=== PATIENT | male | born 1935 | race Caucasian/White ===

== ENCOUNTER → 2016-09-11 | Outpatient (CLI) | payer MEDICARE ==
--- NOTE | 2016-09-11 16:43 | CT ---
EXAMINATION TYPE: CT chest wo con DATE OF EXAM: 09/11/2016 COMPARISON: 03/28/2016 HISTORY: Solitary nodule of lung. CT DLP: 340.50 mGycm, Automated exposure control for dose reduction was used. CONTRAST: None TECHNIQUE: Axial images were obtained at 5 mm thick sections. Reconstructed images are reviewed on [email or web address] computer in the coronal plane. FINDINGS: There is a 7 mm density within the right middle lobe. Series 4 image 35. Some pulmonary fibrosis may be in the dependent lung bases. Paraseptal emphysematous changes could be considered. Some mild bronc hiectasis appears to be in the lower lung carranza. Emphysematous changes are present diffusely. No enlarged mediastinal or hilar adenopathy is evident. The ascending aorta diameter at the level o f the main pulmonary artery is 3.9 cm. The main pulmonary artery diameter at the bifurcation is 3.0 cm. Minimal coronary artery calcification is present. Limited CT sections are obtained through the upper abdomen. Pancreas atrophy is present. IMPRESSIONS: 1. Emphysematous changes. 2. Tiny density may be in the right middle lobe. This 7 mm density is 2 mm larger than the comparison study. Consider PET CT for additional evaluation.
== END | disposition home or self-care (01) ==
LOC: RADCTMAIN 16:23
PROVIDERS: ATTEND Family Medicine
DX: J43.9 Emphysema, unspecified (principal)
CPT/HCPCS: 71250

== ENCOUNTER → 2017-04-17 | Outpatient (CLI) | payer MEDICARE ==
--- NOTE | 2017-04-17 10:33 | MR ---
EXAMINATION TYPE: MR brain wo con DATE OF EXAM: 04/17/2017 COMPARISON: Correlation CT 03/28/2017 HISTORY: 81-year-old male TIA unspecified, weakness TECHNIQUE: Multiplanar, multisequence images of the brain and brainstem were acquired without IV con trast. Diffusion weighted imaging is performed. FINDINGS: No evidence for acute infarction, hemorrhage, mass, mass effect, midline shift, herniation, effacemen t of basal cisterns, or extra-axial fluid collection. Some bright signal in the left ivey radiata on DWI sequence is compatible with T2 shine through as there is corresponding bright signal on the ADC map. No restricted diffusion identified. There is mild to moderate generalized supratentorial volume loss. No hydrocephalus. Major intracranial flow voids are intact. The right vertebral artery is dominant. T2/FLAIR weighted sequences show mild scattered burden of bright white matter change, numbering appro ximately 9 in the left cerebral hemisphere and 10 in the right cerebral hemisphere. Largest area lorenzo ures 1.2 cm in the left ivey radiata extending to the overlying anterior parietal cortex. Midline structures demonstrate normal morphology. The craniocervical junction is normal. Mild pansinus mucosal thickening with a prominent 2.6 cm polyp or mucosal retention cyst floor of the left maxillary sinus. IMPRESSION: 1. 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 No a cute intracranial abnormality seen. 2. Mild to moderate atrophy. Background of mild scattered burden of T2 bright white matter change lik gera related to chronic small vessel ischemic disease. 3. Mild chronic pansinus disease.
== END | disposition home or self-care (01) ==
LOC: RADMRIMAIN 08:05
PROVIDERS: ATTEND Family Medicine
DX: G31.9 Degenerative disease of nervous system, unspecified (principal); Z86.73 Personal history of transient ischemic attack (TIA), and cerebral infarction without residual deficits
CPT/HCPCS: 70551

== ENCOUNTER → 2017-04-19 | Outpatient (CLI) | payer MEDICARE ==
--- NOTE | 2017-04-19 16:01 | US ---
EXAMINATION TYPE: US kidneys/renal and bladder DATE OF EXAM: 04/19/2017 COMPARISON: NONE CLINICAL HISTORY: 81-year-old male R31.9 HEMATURIA. TECHNIQUE: Multiple sonographic images of the kidneys and bladder are obtained. FINDINGS: Right Kidney: 10.1 x 4.8 x 4.5 cm a slightly lobulated contour, similar to prior. No hydronephrosis. Left Kidney: 10.1 x 4.8 x 3.7 cm with contour lobulations, no definite mass. Overall similar appearan ce to 03/28/2016. No hydronephrosis. Partial distention limits evaluation. Neither ureteral jet is seen during the course of the exam. Pos t Void Residual Volume: 20.5 mL IMPRESSION: 1. Similar lobulated renal contours. No hydronephrosis on either side and no convincing mass by ultra sound. 2. Postvoid bladder volume of 20.5 ml. While this is increased, it is within an acceptable range.
== END | disposition home or self-care (01) ==
LOC: RADUSWWP 14:40
PROVIDERS: ATTEND Family Medicine
DX: R31.9 Hematuria, unspecified (principal)
CPT/HCPCS: 76770

== ENCOUNTER → 2017-05-09 | Outpatient (CLI) | payer MEDICARE ==
--- NOTE | 2017-05-09 14:36 | US ---
EXAMINATION TYPE: US venous doppler duplex LE RT DATE OF EXAM: 05/09/2017 2:23 PM COMPARISON: NONE CLINICAL HISTORY: M79.604 Pain in Rt leg. right muscle pain per patient, no h/o dvt, no swelling SIDE PERFORMED: Right TECHNIQUE: The lower extremity deep venous system is examined utilizing real time linear array sonog richi with graded compression, doppler sonography and color-flow sonography. VESSELS IMAGED: External Iliac Vein (EIV) Common Femoral Vein Deep Femoral Vein Greater Saphenous Vein * Femoral Vein Popliteal Vein Small Saphenous Vein * Proximal Calf Veins (* superficial vessels) Grayscale, color doppler, spectral doppler imaging performed of the deep veins of the lower extremiti es. There is normal flow, compressibility, vascular waveforms. Right Leg: Appears negative for DVT *tech impression to Aishwarya at office IMPRESSION: No sonographic evidence of deep venous arthrosis within the right lower extremity.
== END | disposition home or self-care (01) ==
LOC: RADUSWWP 13:49
PROVIDERS: ATTEND Family Medicine
DX: M79.604 Pain in right leg (principal)

== ENCOUNTER 2017-08-02 10:20 | Day surgery (SDC) | payer MEDICARE ==
[2017-08-01 09:32] VITALS: BMI 25.0
[~2017-08-02 10:20] MED LIST: LACTATED RINGERS 1,000 ML IV SCH
[2017-08-02 11:59] VITALS: TEMP 97.8
[2017-08-02 12:02] VITALS: RESP 16
[2017-08-02] MEDS ORDERED: LIDOCAINE 1% 20 ML VIAL (10MG/ML) FOR IV START INTRADERMA ONE (12:04)
[2017-08-02] MEDS ORDERED: LIDOCAINE 1% INJ 10MG/ML (20 ML MDV) ONE (12:15)
[2017-08-02] MEDS ORDERED: PROPOFOL 10 MG/ML 20 ML VIAL IV ONE (12:15)
--- NOTE | 2017-08-02 13:01 | P.PCN ---
Date of Procedure: 08/02/17 Procedure(s) Performed: Procedure: Esophagogastroduodenoscopy and biopsy. Preoperative diagnosis: Chronic reflux symptoms despite therapy. Postoperative diagnosis: 1. Small sliding hiatal hernia with no definite esophagitis or complicated reflux disease. 2. Mild antral gastritis. 3. Multiple biopsies obtained from the duodenum, antrum and esophagus. Preparation and sedation: Was provided by anesthesia. Brief clinical history: The patient is an 81-year-old male who is scheduled for this evaluation because of chronic reflux symptoms that is requiring therapy. He denies dysphagia or other alarm symptoms. No history of anemia. This evaluation is to assess for esophagitis or complicated reflux disease. Procedure: With the patient on his left lateral decubitus position and after informed consent and adequate sedation, I passed the Olympus-GIF 160 video upper endoscope through the cricopharyngeus down the esophagus. GE junction was around 41 centimeters from the incisors and there was a small sliding hiatal hernia but no obvious esophagitis or complicated reflux disease. The endoscope was then passed into the stomach which was insufflated with air and inspected in detail including the retroflex view in the cardia. There was some mottling and erythema in the antrum but no ulcers or erosions. Pyloric channel , duodenal bulb, post bulbar area and descending duodenum appeared within normal limits. I obtained multiple biopsies from the duodenum, antrum and esophagus then the endoscope was withdrawn. The patient tolerated the procedure well. Plan: The patient was reassured. Will await biopsy results. He will continue antireflux diet and measures. Further plans based on his course and biopsy results.
[2017-08-02 13:19] VITALS: BP 188/79; PULSE 62
== END 2017-08-02 13:51 | disposition home or self-care (01) ==
LOC: ORWHC2ENDO 10:20
DX: K29.50 Unspecified chronic gastritis without bleeding (principal); K21.9 Gastro-esophageal reflux disease without esophagitis; I10 Essential (primary) hypertension; E78.5 Hyperlipidemia, unspecified; N40.0 Benign prostatic hyperplasia without lower urinary tract symptoms; K44.9 Diaphragmatic hernia without obstruction or gangrene; Z86.73 Personal history of transient ischemic attack (TIA), and cerebral infarction without residual deficits; E07.9 Disorder of thyroid, unspecified; Z79.899 Other long term (current) drug therapy
CPT/HCPCS: 88305; 43239; J2001; J2704

== ENCOUNTER → 2021-06-21 | Outpatient (CLI) | payer MEDICARE ==
--- NOTE | 2021-06-21 08:42 | MR ---
EXAMINATION TYPE: MR brain wo/w con DATE OF EXAM: 06/21/2021 COMPARISON: Prior MRI brain April 17, 2017 HISTORY: Transient cerebral ischemia TECHNIQUE: Multiplanar, multisequence images of the brain and brainstem is performed without and with IV contras t, utilizing 8 mL intravenous Gadavist . FINDINGS: Diffusion weighted images demonstrate no evidence of a recent infarct or other diffusion ab normality. There is mild to moderate ventricular and sulcal prominence redemonstrated. Scattered foc i of T2 hyperintensity seen throughout the white matter bilaterally greatest in the periventricular l evels. Focal area of old infarct or encephalomalacia inferior anterior left parietal level. This was subacute in age on prior MRI and shows some interval change or progression. Midline structures demonstrate normal morphology. The craniocervical junction appears within normal limits. Post contrast images demonstrate no abnormal enhancement. The dural venous sinuses appear pa tent. Mild mucosal thickening throughout the ethmoid and inferior maxillary sinuses redemonstrated. N nohemi septum redemonstrated deviated to right of midline anteriorly. Globes are intact bilaterally. IMPRESSION: 1. No MRI for a recent infarct. 2. Onjh-we-imtcwjik diffuse cerebral atrophy and chronic small vessel ischemic changes with old anter ior inferior left parietal lobe infarct are all redemonstrated. 3. Mild chronic paranasal sinus disease redemonstrated.
== END | disposition home or self-care (01) ==
LOC: RADMRIMAIN 07:35
PROVIDERS: ATTEND Family Medicine
DX: G45.9 Transient cerebral ischemic attack, unspecified (principal)
CPT/HCPCS: 70553; A9585

== ENCOUNTER → 2021-06-22 | Outpatient (CLI) | payer MEDICARE ==
--- NOTE | 2021-06-22 15:40 | US ---
EXAMINATION TYPE: US carotid duplex BILAT DATE OF EXAM: 06/22/2021 COMPARISON: NONE CLINICAL HISTORY: G45.9 TRANSIENT CEREBRAL ISCHEMIC ATTACK, UNSPECIFED. TIA, HTN, hyperlipidemia, ean or smoker. EXAM MEASUREMENTS: RIGHT: Peak Systolic Velocity (PSV) cm/sec ----- Right CCA: 93.2 ----- Right ICA: 79.6 ----- Right ECA: 82.9 ICA/CCA ratio: 0.85 RIGHT: End Diastole cm/sec ----- Right CCA: 9.94 ----- Right ICA: 13.7 ----- Right ECA: 0.55 LEFT: Peak Systolic Velocity (PSV) cm/sec ----- Left CCA: 74.6 ----- Left ICA: 89.5 ----- Left ECA: 102 ICA/CCA ratio: 1.20 LEFT: End Diastole cm/sec ----- Left CCA: 11.5 ----- Left ICA: 14.8 ----- Left ECA: 2.49 VERTEBRALS (direction of flow): Right Vertebral: Antegrade Left Vertebral: Antegrade Rhythm: Normal Intimal thickening seen bilaterally. Plaque seen within right and left ICA. No elevated velocities a t this time. IMPRESSION: 1. Intimal thickening with mild atheromatous plaquing. Significant flow-limiting stenosis is not evid ent. Criteria for Assigning % of Stenosis / Diameter reduction (Estimation based on the indirect measurements of the internal carotid artery velocities (ICA PSV). 1. Normal (no stenosis)=ICA PSV < 125 cm/s: ratio < 2.0: ICA EDV<40 cm/s. 2. Less than 50% stenosis=ICA PSV < 125 cm/s: ratio < 2.0: ICA EDV<40 cm/s. 3. 50 to 69% stenosis=ICA PSV of 125 to 230 cm/s: ration 2.0 ? 4.0: ICA EDV 40-100 cm/s. 4. Greater than 70% stenosis to near occlusion= ICA PSV > 230 cm/s: ratio > 4.0: ICA EDV > 100 cm/s. 5. Near occlusion= ICA PSV velocities may be low or undetectable: variable ratio and ICA EDV. 6. Total occlusion=unable to detect flow.
== END | disposition home or self-care (01) ==
LOC: RADUSWWP 14:47
PROVIDERS: ATTEND Family Medicine
DX: I67.2 Cerebral atherosclerosis (principal)
CPT/HCPCS: 93880

== ENCOUNTER 2021-07-04 10:34 | Emergency (ER) | payer MEDICARE ==
[2021-07-04 10:41] VITALS: RESP 18; TEMP 97.6
--- NOTE | 2021-07-04 11:25 | ED ---
General Adult HPI - General Chief complaint: Dizziness Stated complaint: Dizzy/High BP Time Seen by Provider: 07/04/21 10:49 Source: patient Mode of arrival: wheelchair Limitations: no limitations - History of Present Illness Initial comments: This 85-year-old male with past medical history of TIA, hyperlipidemia, hypertension and thyroid disorder presents emergency Department feeling lightheaded 2 hours. Patient states he was sitting in his chair earlier today and after going from sitting to standing he began to feel "wobbly and lightheaded." He states he did try and get up and walk around a little bit which he states it worsen his lightheadedness. Patient states he then sat down on the couch and did still feel some lightheadedness for about 30 minutes which should resolve on its own prior to coming to the emergency department. Patient states he thought he felt dizzy, however he denies himself or the room spinning states he thinks it was more lightheadedness than anything. Patient denies ever having symptoms similar to this in the past. Patient states he is currently not experiencing lightheadedness at this time and states he feels symptom-free. Patient states at the time of feeling lightheaded at home he did take his blood pressure which was 182/90. She states she does take high blood pressure medication and did take his losartan this morning. Patient denies any chest pain, shortness of breath, abdominal pain, nausea, vomiting, change in bowel or bladder, change in appetite, headache, visual changes, one-sided weakness. - Related Data Home Medications Medication Instructions Recorded Confirmed Levothyroxine Sodium [Synthroid] 50 mcg PO HS 08/04/15 07/04/21 Losartan [Cozaar] 50 mg PO DAILY 08/04/15 07/04/21 Aspirin 325 mg PO HS 07/04/21 07/04/21 Atorvastatin [Lipitor] 40 mg PO HS 07/04/21 07/04/21 Omeprazole 20 mg PO DAILY 07/04/21 07/04/21 rOPINIRole HCL [Requip] 2 mg PO HS 07/04/21 07/04/21 Allergies Allergy/AdvReac Type Severity Reaction Status Date / Time No Known Allergies Allergy Verified 07/04/21 11:15 Review of Systems ROS Statement: Those systems with pertinent positive or pertinent negative responses have been documented in the HPI. ROS Other: All systems not noted in ROS Statement are negative. Past Medical History Past Medical History: CVA/TIA, GERD/Reflux, Hyperlipidemia, Hypertension, Prostate Disorder, Thyroid Disorder Additional Past Medical History / Comment(s): enlarged prostate, TIA 2016- tingling right hand, severe episode of GERD recently History of Any Multi-Drug Resistant Organisms: None Reported Additional Past Surgical History / Comment(s): COLONOSCOPY Past Anesthesia/Blood Transfusion Reactions: No Reported Reaction Past Psychological History: No Psychological Hx Reported Smoking Status: Former smoker Past Alcohol Use History: Daily Past Drug Use History: None Reported - Past Family History Mother Family Medical History: No Reported History General Exam Limitations: no limitations General appearance: alert, in no apparent distress Head exam: Present: atraumatic, normocephalic, normal inspection Eye exam: Present: normal appearance, PERRL, EOMI. Absent: scleral icterus, conjunctival injection, periorbital swelling Pupils: Present: normal accommodation ENT exam: Present: mucous membranes moist Neck exam: Present: normal inspection, full ROM. Absent: tenderness, meningismus, lymphadenopathy Respiratory exam: Present: normal lung sounds bilaterally. Absent: respiratory distress, wheezes, rales, rhonchi, stridor, chest wall tenderness Cardiovascular Exam: Present: regular rate, normal rhythm, normal heart sounds. Absent: systolic murmur, diastolic murmur, rubs, gallop, clicks GI/Abdominal exam: Present: soft, normal bowel sounds. Absent: distended, tenderness, guarding, rebound, rigid Extremities exam: Present: normal inspection, full ROM, normal capillary refill. Absent: tenderness, pedal edema, joint swelling, calf tenderness Back exam: Present: normal inspection, full ROM. Absent: CVA tenderness (R), CVA tenderness (L), paraspinal tenderness, vertebral tenderness Neurological exam: Present: alert, oriented X3, CN II-XII intact, other (Patient able to perform finger to nose, 6 cardinal signs of gaze, and rapid alternating movements without any trouble.). Absent: motor sensory deficit Psychiatric exam: Present: normal affect, normal mood Skin exam: Present: warm, dry, intact, normal color. Absent: rash Course Vital Signs 07/04/21 07/04/21 07/04/21 10:35 12:29 13:15 Temperature 97.6 F Pulse Rate 83 85 Respiratory 18 18 Rate Blood Pressure 226/87 175/75 Blood Pressure 188/89 [Sitting] Blood Pressure 181/85 [Standing] Blood Pressure 190/77 [Supine] O2 Sat by Pulse 94 L 98 Oximetry EKG Findings - EKG Comments: EKG Findings:: ED impression: Sinus rhythm. Ventricular rate 76 beats minute. IA interval 206. QRS duration 101. QT/QTC 369/399. Similar compared to prior EKGs. Reviewed by myself and my attending, Dr. Villagran Medical Decision Making - Medical Decision Making This 85-year-old male presents emergency Department with episodic lightheadedness that began this morning. Patient currently without any symptoms. Patient did get up and walk to the bathroom and stated he did not feel any symptoms at that time. Patient with labs of white blood cell count 5.8, BUN 22, creatinine 1. 27, urine with trace protein. Troponin negative. Chest x-ray impression: COPD. Patchy peripheral changes appear to be mostly chronic. Query any underlying fibrosis or interstitial pneumonitis. Patient without any cough, fever, or shortness of breath. CT brain without contrast impression: No acute intracranial hemorrhage or midline shift. There is mild to moderate diffuse her last her feet and chronic small vessel ischemic changes and was treated. No significant change from 2017. Patient given fluids in the emergency department and was requesting to be discharged. Patient stated he follow-up with his primary care provider and yarn spinner this week. Patient as ymptomatic prior to discharge. I did instruct patient to return if any symptoms return or for any new, concerning, or worsening symptoms arise. Strict return precautions were discussed. Patient verbally agreed to plan. Patient sent home in stable condition. Case discussed in detail to my attending, Dr. Villagran. - Lab Data Result diagrams: 07/04/21 11:16 07/04/21 11:16 Lab Results 07/04/21 07/04/21 07/04/21 Range/Units 11:16 11:16 11:16 WBC 5.8 (3.8-10.6) k/uL RBC 4.32 (4.30-5.90) m/uL Hgb 14.3 (13.0-17.5) gm/dL Hct 42.9 (39.0-53.0) % MCV 99.3 (80.0-100.0) fL MCH 33.0 (25.0-35.0) pg MCHC 33.3 (31.0-37.0) g/dL RDW 13.3 (11.5-15.5) % Plt Count 134 L (150-450) k/uL MPV 7.5 Neutrophils % 68 % Lymphocytes % 23 % Monocytes % 5 % Eosinophils % 2 % Basophils % 1 % Neutrophils # 3.9 (1.3-7.7) k/uL Lymphocytes # 1.3 (1.0-4.8) k/uL Monocytes # 0.3 (0-1.0) k/uL Eosinophils # 0.1 (0-0.7) k/uL Basophils # 0.1 (0-0.2) k/uL PT 10.4 (9.0-12.0) sec INR 0.9 (<1.2) Sodium 141 (137-145) mmol/L Potassium 4.1 (3.5-5.1) mmol/L Chloride 109 H (98-107) mmol/L Carbon Dioxide 24 (22-30) mmol/L Anion Gap 8 mmol/L BUN 22 H (9-20) mg/dL Creatinine 1.27 H (0.66-1.25) mg/dL Est GFR (CKD-EPI)AfAm 59 (>60 ml/min/1.73 sqM) Est GFR (CKD-EPI)NonAf 51 (>60 ml/min/1.73 sqM) Glucose 139 H (74-99) mg/dL Calcium 9.4 (8.4-10.2) mg/dL Magnesium 1.9 (1.6-2.3) mg/dL Total Bilirubin 1.3 (0.2-1.3) mg/dL AST 25 (17-59) U/L ALT 21 (4-49) U/L Alkaline Phosphatase 117 (38-126) U/L Troponin I (0.000-0.034) ng/mL Total Protein 6.9 (6.3-8.2) g/dL Albumin 4.0 (3.5-5.0) g/dL Urine Color Urine Appearance (Clear) Urine pH (5.0-8.0) Ur Specific [place] (1.001-1.035) Urine Protein (Negative) Urine Glucose (UA) (Negative) Urine Ketones (Negative) Urine Blood (Negative) Urine Nitrite (Negative) Urine Bilirubin (Negative) Urine Urobilinogen (<2.0) mg/dL Ur Leukocyte Esterase (Negative) 07/04/21 07/04/21 Range/Units 11:16 13:06 WBC (3.8-10.6) k/uL RBC (4.30-5.90) m/uL Hgb (13.0-17.5) gm/dL Hct (39.0-53.0) % MCV (80.0-100.0) fL MCH (25.0-35.0) pg MCHC (31.0-37.0) g/dL RDW (11.5-15.5) % Plt Count (150-450) k/uL MPV Neutrophils % % Lymphocytes % % Monocytes % % Eosinophils % % Basophils % % Neutrophils # (1.3-7.7) k/uL Lymphocytes # (1.0-4.8) k/uL Monocytes # (0-1.0) k/uL Eosinophils # (0-0.7) k/uL Basophils # (0-0.2) k/uL PT (9.0-12.0) sec INR (<1.2) Sodium (137-145) mmol/L Potassium (3.5-5.1) mmol/L Chloride (98-107) mmol/L Carbon Dioxide (22-30) mmol/L Anion Gap mmol/L BUN (9-20) mg/dL Creatinine (0.66-1.25) mg/dL Est GFR (CKD-EPI)AfAm (>60 ml/min/1.73 sqM) Est GFR (CKD-EPI)NonAf (>60 ml/min/1.73 sqM) Glucose (74-99) mg/dL Calcium (8.4-10.2) mg/dL Magnesium (1.6-2.3) mg/dL Total Bilirubin (0.2-1.3) mg/dL AST (17-59) U/L ALT (4-49) U/L Alkaline Phosphatase (38-126) U/L Troponin I 0.013 (0.000-0.034) ng/mL Total Protein (6.3-8.2) g/dL Albumin (3.5-5.0) g/dL Urine Color Yellow Urine Appearance Clear (Clear) Urine pH 6.0 (5.0-8.0) Ur Specific [place] 1.013 (1.001-1.035) Urine Protein Trace H (Negative) Urine Glucose (UA) Negative (Negative) Urine Ketones Negative (Negative) Urine Blood Negative (Negative) Urine Nitrite Negative (Negative) Urine Bilirubin Negative (Negative) Urine Urobilinogen <2.0 (<2.0) mg/dL Ur Leukocyte Esterase Negative (Negative) Disposition Clinical Impression: Light-headed Disposition: HOME SELF-CARE Condition: Stable Instructions (If sedation given, give patient instructions): Lightheadedness (ED) Additional Instructions: Please follow-up with your primary care provider and yarn spinner in next 1-2 days. Return to the emergency department if symptoms return or if any new, worsening or concerning symptoms arise. Is patient prescribed a controlled substance at d/c from ED?: No Referrals: Brock Little MD [Primary Care Provider] - 1-2 days Time of Disposition: 14:04
[2021-07-04 11:26] LABS: Basophils # (A) 0.1 k/uL (0-0.2); Basophils % (A) 1 %; Eosinophils # (A) 0.1 k/uL (0-0.7); Eosinophils % (A) 2 %; HCT 42.9 % (39.0-53.0); HGB 14.3 gm/dL (13.0-17.5); Lymphocytes # (A) 1.3 k/uL (1.0-4.8); Lymphocytes % (A) 23 %; MCHC 33.3 g/dL (31.0-37.0); MCV 99.3 fL (80.0-100.0); Mean Platelet Volume 7.5; Monocytes # (A) 0.3 k/uL (0-1.0); Monocytes % (A) 5 %; Neutrophils # (A) 3.9 k/uL (1.3-7.7); Neutrophils % (A) 68 %; Platelet Count 134 k/uL (150-450); RBC 4.32 m/uL (4.30-5.90); RDW 13.3 % (11.5-15.5); WBC 5.8 k/uL (3.8-10.6)
[2021-07-04 11:42] LABS: INR 0.9 (<1.2); Prothrombin Time 10.4 sec (9.0-12.0)
[2021-07-04 11:44] LABS: Calcium 9.4 mg/dL (8.4-10.2); Magnesium 1.9 mg/dL (1.6-2.3); Potassium 4.1 mmol/L (3.5-5.1); Total Bilirubin 1.3 mg/dL (0.2-1.3); Total Protein 6.9 g/dL (6.3-8.2)
--- NOTE | 2021-07-04 12:08 | CT ---
EXAMINATION TYPE: CT brain wo con DATE OF EXAM: 07/04/2021 HISTORY: lightheaded and weakness CT DLP: 1123.4 mGycm. Automated Exposure Control for Dose Reduction was Utilized. TECHNIQUE: CT scan of the head is performed without contrast. COMPARISON: CT brain March 28, 2017. FINDINGS: There is no acute intracranial hemorrhage or midline shift identified. There is mild to m oderate diffuse ventricular and sulcal prominence consistent with diffuse age-related cerebral atroph y. There is [id number] low-attenuation in the periventricular white matter consistent with chr onic small vessel ischemic change. The globes are intact and the visualized sinuses are clear. IMPRESSION: No acute intracranial hemorrhage or midline shift. There is [id number] diffuse ce rebral atrophy and chronic small vessel ischemic change redemonstrated. No significant change from [address] noted
--- NOTE | 2021-07-04 12:15 | XR ---
EXAMINATION TYPE: XR chest 2V DATE OF EXAM: 07/04/2021 COMPARISON: 03/28/2017 HISTORY: 85-year-old male lightheaded, dizziness TECHNIQUE: PA and lateral views FINDINGS: Heart upper limits of normal in size. Hyperinflation. Some patchy peripheral interstitial opacities a re present. No pleural effusion. IMPRESSION: 1. COPD. 2. Patchy peripheral interstitial changes appear to be mostly chronic. Query any underlying fibrosis or interstitial pneumonitis. Changes may be slightly progressed from 2017.
[2021-07-04 13:16] LABS: Appearance,Urine Clear (Clear); Bilirubin,Urine Negative (Negative); Blood,Urine Negative (Negative); Color,Urine Yellow; Glucose,Urine (UA) Negative (Negative); Ketones,Urine Negative (Negative); Leukocyte Esterase,Urine Negative (Negative); Nitrite,Urine Negative (Negative); Protein,Urine Trace (Negative); Specific Gravity,Urine 1.013 (1.001-1.035); Urobilinogen,Urine <2.0 mg/dL (<2.0)
[2021-07-04] MEDS ORDERED: SODIUM CHLORIDE 0.9% 500 ML 500 ML IV STA (13:47)
[2021-07-04 14:36] VITALS: BP 172/82; PULSE 64
== END 2021-07-04 14:55 | disposition home or self-care (01) ==
LOC: EC 10:34
DX: R42 Dizziness and giddiness (principal); K21.9 Gastro-esophageal reflux disease without esophagitis; E78.5 Hyperlipidemia, unspecified; I10 Essential (primary) hypertension; E07.9 Disorder of thyroid, unspecified; Z79.82 Long term (current) use of aspirin; Z86.73 Personal history of transient ischemic attack (TIA), and cerebral infarction without residual deficits; Z87.891 Personal history of nicotine dependence
CPT/HCPCS: 36415; 70450; 71046; 80053; 81003; 83735; 84484; 85025; 85610; 93005; 99284

== ENCOUNTER → 2022-01-13 | Outpatient (CLI) | payer MEDICARE ==
--- NOTE | 2022-01-13 14:46 | CT ---
EXAMINATION TYPE: CT abdomen pelvis wo con DATE OF EXAM: 01/13/2022 COMPARISON: None HISTORY: Abdominal pain CT DLP: 556.5 mGycm Automated exposure control for dose reduction was used. TECHNIQUE: Helical acquisition of images was performed from the lung bases through the pelvis. FINDINGS: There are mild chronic changes in the lung bases where there is mild interstitial fibrosis and bronch iectasis. The gallbladder is normal without gallstones, wall thickening, pericholecystic fluid or distention. T here is no biliary ductal dilatation. There is no organomegaly involving the liver pancreas, spleen or adrenal glands. There are a few panc reatic calcifications. There are no renal calcifications or hydronephrosis. Caliber the abdominal aorta is normal is no retroperitoneal adenopathy or hemorrhage.. The bowel loops are normal in caliber and there is no evidence of dilatation or obstruction. No inflammatory changes are identified in the bowel wall or mesentery and there is no free intraperit lima air or fluid There is no pelvic mass, free fluid, abscess or adenopathy. There is moderate prostatic hypertrophy The osseous structures and soft tissues are intact. IMPRESSION: 1. Chronic inflammatory changes within the lung bases. 2. No renal calcifications or cholelithiasis. 3. No bowel obstruction or inflammation
== END | disposition home or self-care (01) ==
LOC: RADCTMAIN 12:11
PROVIDERS: ATTEND Family Medicine
DX: R10.9 Unspecified abdominal pain (principal)
CPT/HCPCS: 74176

== ENCOUNTER → 2023-01-29 | Outpatient (CLI) | payer MEDICARE ==
[2023-01-29 10:50] LABS: African American GFR (CKD) 49 (>60 ml/min/1.73 sqM); Blood Urea Nitrogen 33 mg/dL (9-20); Non-African American GFR(CKD) 42 (>60 ml/min/1.73 sqM)
--- NOTE | 2023-01-29 12:05 | CT ---
EXAMINATION TYPE: CT ChestAbdPelvis w con CT DLP: 1616 mGycm, Automated exposure control for dose reduction was used. DATE OF EXAM: 01/29/2023 11:51 AM COMPARISON: CT abdomen pelvis 01/13/2022, CT chest 09/11/2016 CLINICAL INDICATION:Male, 87 years old with history of R63.4 abnormal weight loss; PHH, abnormal weig ht loss Technique: Multiple axial images of the chest, abdomen, and pelvis were obtained following the intrav enous administration of 80 mL Isovue-300. Oral contrast was administered. Two-dimensional coronal and sagittal reconstructions were obtained. Findings: CHEST: LUNGS/ PLEURA: Biapical pleural-parenchymal scarring. Scattered bilateral peripheral reticular opacit ies consistent with pulmonary fibrotic changes. Mild paraseptal emphysematous changes. No pleural eff usion, pneumothorax, focal consolidation. Stable right lower lobe 4 mm pulmonary nodule (series 4, im age 89). Considered benign due to stability from 2017. No new suspicious pulmonary nodule or mass. AIRWAY: Patent and unremarkable.. HEART: Cardiomegaly is demonstrated. No pericardial effusion. Mitral annulus calcifications. Small co ronary artery calcifications. MEDIASTINUM: No evidence of adenopathy. VASCULATURE: No aortic aneurysm. Atherosclerotic calcification of the aorta and its branches. MUSCULOSKELETAL: No acute osseous abnormalities. SOFT TISSUES/LYMPH NODES: Unremarkable. LOWER NECK: No significant findings. ABDOMEN: ABDOMEN LIVER: Unremarkable GALLBLADDER AND BILE DUCTS: Unremarkable. PANCREAS: Fatty infiltration. SPLEEN: Unremarkable. ADRENAL GLANDS: Unremarkable. KIDNEYS AND URETERS: No evidence of hydronephrosis or renal calculus. The is enhance symmetrically. C ortical thinning of both kidneys. PELVIS BLADDER: Unremarkable REPRODUCTIVE: Unremarkable. ABDOMEN & PELVIS STOMACH AND BOWEL: Stomach and duodenum are unremarkable. Distal colonic diverticulosis without evide nce for acute diverticulitis. Enteric contrast reaches the descending colon. No focal wall thickening or surrounding inflammatory changes. No evidence of bowel obstruction. PERITONEUM: No evidence of pneumoperitoneum or free fluid. VASCULATURE: Moderate atherosclerotic calcifications are present throughout the abdominal aorta and i ts branches. No abdominal aortic aneurysm. MUSCULOSKELETAL: No acute osseous abnormalities. Mild disc degeneration changes are present throughout the thoracolumbar spine. LYMPH NODES: No gross evidence for lymphadenopathy. SOFT TISSUE/ABDOMINAL WALL: Small fat filled umbilical hernia. Fat filled left inguinal hernia. IMPRESSION: 1. No acute process within the chest, abdomen or pelvis. 2. Similar mild pulmonary fibrotic changes. 3. Colonic diverticulosis without evidence for acute diverticulitis.
== END | disposition home or self-care (01) ==
LOC: RADCTMAIN 09:39
PROVIDERS: ATTEND Internal Medicine Gastroenterology
DX: K57.30 Diverticulosis of large intestine without perforation or abscess without bleeding (principal); R63.4 Abnormal weight loss; J84.10 Pulmonary fibrosis, unspecified
CPT/HCPCS: 82565; 84520; 71260; 74177; 36415; Q9967

== ENCOUNTER 2023-09-14 22:43 | Emergency (ER) | payer MEDICARE ==
[2023-09-14 22:52] VITALS: RESP 18
--- NOTE | 2023-09-14 23:31 | ED ---
Fall HPI - General Source: patient, family, RN notes reviewed Mode of arrival: EMS <Mariia Culver - Last Filed: 09/17/23 16:23> <Desiree Willoughby - Last Filed: 09/18/23 13:41> - General Chief Complaint: Fall Stated Complaint: Fall- head injury Time Seen by Provider: 09/14/23 23:00 - History of Present Illness Initial Comments: This is an 88-year-old male presents emergency department via EMS for chief complaint of fall. Patient states that he was walking upstairs when next thing he remembers is falling and striking his head. Currently patient is denying any cervical neck pain, headaches, blurry vision, double vision, pain, shortness of breath, heart palpitations, lightheadedness. Denies presyncopal symptoms before the time of the event. Patient was not given any pain medication and route via EMS, multiple bandages were applied to his head in addition to a c-collar is in place. Patient denies use of blood thinners. he is unaware of when his last tetanus vaccine was. (Mariia Culver) - Related Data Home Medications Medication Instructions Recorded Confirmed Levothyroxine Sodium [Synthroid] 50 mcg PO HS 08/04/15 07/04/21 Losartan [Cozaar] 50 mg PO DAILY 08/04/15 07/04/21 Aspirin 325 mg PO HS 07/04/21 07/04/21 Atorvastatin [Lipitor] 40 mg PO HS 07/04/21 07/04/21 Omeprazole 20 mg PO DAILY 07/04/21 07/04/21 rOPINIRole HCL [Requip] 2 mg PO HS 07/04/21 07/04/21 Allergies Allergy/AdvReac Type Severity Reaction Status Date / Time No Known Allergies Allergy Verified 09/14/23 22:52 Review of Systems ROS Other: All systems not noted in ROS Statement are negative. <Mariia Culver - Last Filed: 09/17/23 16:23> ROS Other: All systems not noted in ROS Statement are negative. <Desiree Willoughby - Last Filed: 09/18/23 13:41> ROS Statement: Those systems with pertinent positive or pertinent negative responses have been documented in the HPI. Past Medical History Past Medical History: CVA/TIA, GERD/Reflux, Hyperlipidemia, Hypertension, Prostate Disorder, Thyroid Disorder Additional Past Medical History / Comment(s): enlarged prostate, TIA 2016- tingling right hand, severe episode of GERD recently History of Any Multi-Drug Resistant Organisms: None Reported Additional Past Surgical History / Comment(s): COLONOSCOPY Past Anesthesia/Blood Transfusion Reactions: No Reported Reaction Past Psychological History: No Psychological Hx Reported Smoking Status: Former smoker Past Alcohol Use History: Daily Past Drug Use History: None Reported - Past Family History Mother Family Medical History: No Reported History <Mariia Culver - Last Filed: 09/17/23 16:23> General Exam Limitations: no limitations General appearance: alert, in no apparent distress Head exam: Present: other. Absent: atraumatic Eye exam: Present: normal appearance, PERRL, EOMI. Absent: scleral icterus, conjunctival injection, periorbital swelling ENT exam: Present: normal exam, mucous membranes moist Neck exam: Present: normal inspection. Absent: tenderness, meningismus, lymphadenopathy Respiratory exam: Present: normal lung sounds bilaterally. Absent: respiratory distress, wheezes, rales, rhonchi, stridor Cardiovascular Exam: Present: regular rate, normal rhythm, normal heart sounds. Absent: systolic murmur, diastolic murmur, rubs, gallop, clicks GI/Abdominal exam: Present: soft, normal bowel sounds. Absent: distended, tenderness, guarding, rebound, rigid Right Lower Leg exam: Present: full ROM, laceration (3 cm skin avulsion ). Absent: tenderness Neurovascular tendon exam: Present: no vascular compromise Back exam: Present: normal inspection Neurological exam: Present: alert, oriented X3, CN II-XII intact Psychiatric exam: Present: normal affect, normal mood Skin exam: Present: warm, dry, intact, normal color. Absent: rash <Mariia Culver - Last Filed: 09/17/23 16:23> Skin exam: Present: other (Large forehead laceration measuring around 12 cm.). Absent: intact <Desiree Willoughby - Last Filed: 09/18/23 13:41> Course Vital Signs 09/14/23 09/15/23 22:47 05:52 Temperature 98.7 F 98.3 F Pulse Rate 76 82 Respiratory 18 18 Rate Blood Pressure 164/71 154/73 O2 Sat by Pulse 97 97 Oximetry Procedures - Laceration Laceration #1 Consent Obtained: verbal consent Indication: laceration Site: face Size (cm): 12 Description: linear, flap Depth: involves muscle layer Anesthetic Used: lidocaine 1% Anesthesia Technique: local infiltration Pre-repair: wound explored, irrigated extensively Type of Sutures: other Size of Sutures: 5-0 Number of Sutures: 26 Technique: simple, interrupted Patient Tolerated Procedure: well, no complications <Desiree Willoughby - Last Filed: 09/18/23 13:41> Medical Decision Making <Mariia Culver - Last Filed: 09/17/23 16:23> <Desiree Willoughby - Last Filed: 09/18/23 13:41> - Medical Decision Making Was pt. sent in by a medical professional or institution (Dr. PA, [facility], urgent care, hospital, or halfway...) When possible be specific @ -[No] Did you speak to anyone other than the patient for history (EMS, parent, family, police, friend...)? What history was obtained from this source @ -With the patient being at bedside states the patient is not on any blood thinners. Did you review nursing and triage notes (agree or disagree)? Why? @ -[I reviewed and agree with nursing and triage notes] Were old charts reviewed (outside hosp., previous admission, EMS record, old EKG, old radiological studies, urgent care reports/EKG's, halfway records)? Report findings @ -[No old charts were reviewed] Differential Diagnosis (chest pain, altered mental status, abdominal pain women, abdominal pain men, vaginal bleeding, weakness, fever, dyspnea, syncope, headache, dizziness, GI bleed, back pain, seizure, CVA, palpatations, mental health, musculoskeletal)? @ -contusion, laceration, skin avulsion, cervical neck pain, cervical neck strain, intracranial hemorrhage, this list is not all inclusive. EKG interpreted by me (3pts min.). @ -none X-rays interpreted by me (1pt min.). @ -[None done] CT interpreted by me (1pt min.). @ -[None done] U/S interpreted by me (1pt. min.). @ -[None done] What testing was considered but not performed or refused? (CT, X-rays, U/S, labs)? Why? @ -[None] What meds were considered but not given or refused? Why? @ -Was offered pain medication which he has declined at this time. Did you discuss the management of the patient with other professionals (professionals i.e. , [facility], [facility], lab, RT, psych nurse, social work program coordinator, vial gauger, teacher, chief clinical officer, senior case manager)? Give summary @ -[No] Was smoking cessation discussed for >3mins.? @ -[No] Was critical care preformed (if so, how long)? @ -[No] Were there social determinants of health that impacted care today? How? (Homelessness, low income, unemployed, alcoholism, drug addiction, transportation, low edu. Level, literacy, decrease access to med. care, fdc, rehab)? @ -[No] Was there de-escalation of care discussed even if they declined (Discuss DNR or withdrawal of care, Hospice)? DNR status @ -[No] What co-morbidities impacted this encounter? (DM, HTN, Smoking, COPD, CAD, Cancer, CVA, ARF, Chemo, Hep., AIDS, mental health diagnosis, sleep apnea, morbid obesity)? @ -[None] Was patient admitted / discharged? Hospital course, mention meds given and route, prescriptions, significant lab abnormalities, going to OR and other pertinent info. @ -88-year-old male with a fall. On examination patient is noted to be in a c- collar from EMS arrival. I completed a full neurological examination of the patient with no acute deficits. Patient was noted to have a 3 cm area of skin avulsion of his right anterior shoulder. Additionally patient's head is well bandaged after EMS and bandages stayed in place. At this time patient he will be evaluated via CT of the brain and C-spine without contrast. Signed out to my colleague, Desiree Willoughby PA-C, at [address] results. Undiagnosed new problem with uncertain prognosis? @ -[No] Drug Therapy requiring intensive monitoring for toxicity (Heparin, Nitro, Insulin, Cardizem)? @ -[No] Were any procedures done? @ -[No] Diagnosis/symptom? @ -[default] Acute, or Chronic, or Acute on Chronic? @ -[default] Uncomplicated (without systemic symptoms) or Complicated (systemic symptoms)? @ -[default] Side effects of treatment? @ -[No] Exacerbation, Progression, or Severe Exacerbation? @ -[No] Poses a threat to life or bodily function? How? (Chest pain, [place], [place], pneumonia, PE, COPD, DKA, ARF, appy, cholecystitis, CVA, Diverticulitis, Homicidal, Suicidal, threat to staff... and all critical care pts) @ -[No] (Mariia Culver) CT brain and C-spine was reviewed which showed no evidence of acute intracranial process or C-spine fracture or traumatic malalignment. Patient's forehead laceration was irrigated and repaired. See procedure note. He was updated on his tetanus shot prior to my evaluation. Case was discussed with Dr. Amin. (Desiree Willoughby) Disposition <Mariia Culver - Last Filed: 09/17/23 16:23> Is patient prescribed a controlled substance at d/c from ED?: No <Desiree Willoughby - Last Filed: 09/18/23 13:41> Clinical Impression: Fall, Laceration Disposition: HOME SELF-CARE Condition: Stable Instructions (If sedation given, give patient instructions): Care For Your Stitches (ED) Additional Instructions: Please have stitches removed in around 7 days. Follow up with your primary care provider. Return to the emergency department for new or worsening symptoms. Referrals: Brock Little MD [Primary Care Provider] - 1-2 days
[2023-09-15] MEDS: DIPH,PERTUS(ACELL)TETVAC-LF 0.5 ML VIAL IM ONE (00:14)
--- NOTE | 2023-09-15 00:32 | CT ---
EXAM: CT Head Without Intravenous Contrast CLINICAL HISTORY: ITS.REASON CT Reason: fall, injury TECHNIQUE: Axial computed tomography images of the head/brain without intravenous contrast. CTDI is 45.2 mGy and DLP is 1071 mGy-cm. This CT exam was performed using one or more of the following dose reduction techniques: automated exposure control, adjustment of the mA and/or kV according to patient size, and/or use of iterative reconstruction technique. COMPARISON: No relevant prior studies available. FINDINGS: No acute intracranial hemorrhage. No midline shift or mass effect. The territorial ron-white matter differentiation is maintained throughout. Age-related cerebral volume loss. Periventricular and subcortical white matter hypoattenuation, consistent with chronic microangiopathy. The visualized orbits appear grossly unremarkable. LEFT forehead scalp laceration. The calvarium is intact. The visualized paranasal sinuses and mastoid air cells are grossly clear. IMPRESSION: No acute intracranial hemorrhage, midline shift, or mass effect. LEFT forehead scalp laceration. EXAM: CT Cervical Spine Without Intravenous Contrast CLINICAL HISTORY: ITS.REASON CT Reason: fall, injury TECHNIQUE: Axial computed tomography images of the cervical spine without intravenous contrast. CTDI is 11.6 mGy and DLP is 361.7 mGy-cm. This CT exam was performed using one or more of the following dose reduction techniques: automated exposure control, adjustment of the mA and/or kV according to patient size, and/or use of iterative reconstruction technique. COMPARISON: No relevant prior studies available. FINDINGS: The vertebral body heights are maintained. The craniocervical junction is intact. The atlanto-dens interval is maintained. The dens is intact. There is no spondylolisthesis. Multilevel cervical spondylosis and degenerative disc disease. Straightening of the cervical lordosis. The unenhanced neck soft tissues are grossly unremarkable. The visualized lung apices are grossly clear. IMPRESSION: No acute fracture or subluxation of the cervical spine.
[2023-09-15] MEDS: LIDOCAINE/EPINEPHR/TETRACAINE 5 ML BOTTLE TOPICAL ONE (00:52)
[2023-09-15] MEDS: LIDOCAINE 1% INJ 10MG/ML (20 ML MDV) SQ ONE (00:52)
[2023-09-15] MEDS: ACETAMINOPHEN TAB 500 MG TAB PO STA (02:34)
[2023-09-15 05:55] VITALS: BP 154/73; PULSE 82; TEMP 98.3
== END 2023-09-15 05:52 | disposition home or self-care (01) ==
LOC: EC 22:43
DX: S01.81XA Laceration without foreign body of other part of head, initial encounter (principal); S41.001A Unspecified open wound of right shoulder, initial encounter; Z23 Encounter for immunization; Z87.891 Personal history of nicotine dependence; Z86.73 Personal history of transient ischemic attack (TIA), and cerebral infarction without residual deficits; W10.9XXA Fall (on) (from) unspecified stairs and steps, initial encounter; Y93.01 Activity, walking, marching and hiking
CPT/HCPCS: 72125; 70450; 90715; 12015; 99284; 90471; J2001